=== PATIENT | female | born 1970 ===

== ENCOUNTER 2020-12-16 09:00 | Inpatient (IN) | payer OTHER ==
[~2020-12-16] VITALS: Ht 165.1 cm; Wt 61.2 kg
[2020-12-26] MEDS ORDERED: PRILOSEC OTC20 MG PO (09:43)
[2020-12-26] MEDS ORDERED: PERCOCET 5-3251 EACH PO (09:43)
== END 2020-12-26 15:08 | disposition home or self-care (01) | DRG 331 ==
LOC: O/R 12-23 05:15 → SURG 12-23 05:15 → SURH 12-23 06:15 → SURG 12-23 10:56
PROVIDERS: ADMIT Surgery; ATTEND Surgery
PROC: 07BB4ZZ Excision of Mesenteric Lymphatic, Percutaneous Endoscopic Approach (ICD-10-PCS; 2020-12-23)
PROC: 0DTF4ZZ Resection of Right Large Intestine, Percutaneous Endoscopic Approach (ICD-10-PCS; principal; 2020-12-23 06:15)
DX: C18.0 Malignant neoplasm of cecum (principal); D37.4 Neoplasm of uncertain behavior of colon; R59.0 Localized enlarged lymph nodes